=== PATIENT | male | born 1995 | race Caucasian/White ===

== ENCOUNTER 2017-07-04 18:26 | Emergency (ER) | payer SELFPAY ==
--- NOTE | 2017-07-04 19:45 | ER Document Report ---
HPI - HPI Patient complains to provider of: Rash Onset: This afternoon - 3:45 PM Onset/Duration: Sudden Pain Level: 2 Context: 22-year-old male had a plant touch the back of his left leg and he developed urticaria with facial swelling. He also said he was wheezing and used his inhaler twice. The rashe flattened and subsided quite a bit spontaneously without Benadryl. No chest pain or shortness of breath. Associated Symptoms: None Exacerbated by: Denies Relieved by: Denies Similar symptoms previously: No Recently seen / treated by doctor: No - ROS ROS below otherwise negative: Yes Systems Reviewed and Negative: Yes All other systems reviewed and negative - DERM Skin Color: Normal Past Medical History - General Information source: Patient - Social History Smoking Status: Current Every Day Smoker - vapor Frequency of alcohol use: None Drug Abuse: None Lives with: Family Family History: Reviewed & Not Pertinent Patient has suicidal ideation: No Patient has homicidal ideation: No Pulmonary Medical History: Reports: Hx Asthma Renal/ Medical History: Denies: Hx Peritoneal Dialysis Surgical Hx: Negative Vertical Provider Document - CONSTITUTIONAL Agree With Documented VS: Yes Exam Limitations: No Limitations - INFECTION CONTROL TRAVEL OUTSIDE OF THE [place] IN LAST 30 DAYS: No - HEENT HEENT: Normocephalic. negative: Conjuctival Injection, Pharyngeal Erythema - NECK Neck: Supple. negative: Lymphadenopathy-Left, Lymphadenopathy-Right - RESPIRATORY Respiratory: No Respiratory Distress, Wheezing - insp bilateral O2 Sat by Pulse Oximetry: 95 - CARDIOVASCULAR Cardiovascular: Regular Rate, Regular Rhythm - GI/ABDOMEN Gastrointestinal: Abdomen Soft, Abdomen Non-Tender - MUSCULOSKELETAL/EXTREMETIES Musculoskeletal/Extremeties: MAEW, FROM - NEURO Level of Consciousness: Awake, Alert, Appropriate - DERM Integumentary: Warm, Dry, Rash - few wheals, 1 elevated right antecubital space , flat behind both knees Course - Re-evaluation Re-evalutation: 07/04/17 20:44 Lungs clear after the nebulizer - Vital Signs Vital signs: Temp Pulse Resp BP Pulse Ox 98.4 F 78 20 161/93 H 95 07/04/17 19:01 07/04/17 19:01 07/04/17 19:01 07/04/17 19:01 07/04/17 19:01 Discharge - Discharge Clinical Impression: Elevated blood pressure reading, Urticaria, Wheezing Condition: Good Disposition: HOME, SELF-CARE Instructions: Use of Diphenhydramine, Steroid Medication, Bronchitis With Bronchospasm (Wheezing) ([facility]), Acute Urticaria ([facility]), Inhaled Bronchodilators ( [facility]), Family Physicians / Practices Additional Instructions: to er if worse see family practice doctor for blood pressure recheck use the inhaler 2 puffs every 3 hours for wheeze take over the coninue benadryl 25-50mr every 4-6 hours for the raswh steroids Please complete the patient satisfaction survey if you get one, and return it.. If you do not receive a survey, then you can go to the [facility] website, [email or web address] and place your comments about your very good care. Thank you very much. It was a pleasure being your medical provider today. Prescriptions: Prednisone [Deltasone 20 mg Tablet] 40 mg PO DAILY #8 tablet Forms: Return to Work
[2017-07-04] MEDS ORDERED: DIPHENHYDRAMINE HCL 50 MG CAPSULE PO ONE (19:56)
[2017-07-04] MEDS ORDERED: IPRATROPIUM/ALBUTEROL 0.5-2.5 MG/3 ML AMPUL NEB ONE (19:56)
[2017-07-04] MEDS ORDERED: PREDNISONE 20 MG TABLET PO ONE (19:56)
[2017-07-04] MEDS ORDERED: ALBUTEROL SULFATE HFA (90 MCG/PUFF) 200 PUFF/8.5 GM MDI IH ONE (20:44)
[2017-07-04 21:14] VITALS: BP 134/70
== END 2017-07-04 21:46 | disposition home or self-care (01) ==
LOC: ER 18:26
DX: L50.9 Urticaria, unspecified (principal); R03.0 Elevated blood-pressure reading, without diagnosis of hypertension; R22.0 Localized swelling, mass and lump, head; J45.909 Unspecified asthma, uncomplicated; F17.290 Nicotine dependence, other tobacco product, uncomplicated
CPT/HCPCS: 94640; 99282; J7512; J3490; J7620

== ENCOUNTER 2017-07-17 11:57 | Emergency (ER) | payer OTHER ==
[2017-07-17 12:05] VITALS: BP 146/78
[2017-07-17] MEDS ORDERED: ACYCLOVIR 200 MG CAPSULE PO ONE (13:43)
[2017-07-17] MEDS ORDERED: HYDROCODONE/ACETAMINOPHEN 5-325 MG 6 TAB/DSPK PO PRN (13:43)
--- NOTE | 2017-07-17 13:50 | ER Document Report ---
ED Skin Rash/Insect Bite/Abscs - General Chief Complaint: Skin Problem Stated Complaint: SKIN PROBLEM Time Seen by Provider: 07/17/17 13:11 Mode of Arrival: Ambulatory Information source: Patient Notes: 22-year-old male presents to ED for a rash from the left mid back around to the the left flank around to the left chest. It is in approximately 2 dermatomes. It does not cross the midline. He states he had pain in the area for several days before the rash broke out and the rash broke out yesterday. He denies any fevers or chills. Patient states he did have chickenpox as a child TRAVEL OUTSIDE OF THE [place] IN LAST 30 DAYS: No - HPI Patient complains to provider of: Skin rash/lesion Onset: Other - Rash started yesterday pain started about a week ago Onset/Duration: Gradual Severity: Moderate Pain Level: 4 Skin Character: Erythema, Vesicular - Herpetic pattern Quality of rash: Painful Identify cause: No - Rashes and a hepatic pattern in 2 dermatomes around the left back chest and Exacerbated by: Denies Relieved by: Denies Similar symptoms previously: No Recently seen / treated by doctor: Yes - Related Data Allergies/Adverse Reactions: Sulfa (Sulfonamide Antibiotics) Allergy (Verified 07/17/17 12:05) Home Medications: Current Home Medications Albuterol Sulfate [Proair HFA] 1 - 2 puff IH Q4 PRN 07/17/17 [History] Past Medical History - General Information source: Patient - Social History Smoking Status: Current Every Day Smoker - Vapor cigarette Cigarette use (# per day): Yes - Vapor cigarettes Chew tobacco use (# tins/day): No Frequency of alcohol use: None Drug Abuse: None Lives with: Alone Family History: Arthritis, DM, Hyperlipidemia, Hypertension, Thyroid Disfunction Patient has suicidal ideation: No Patient has homicidal ideation: No - Past Medical History Cardiac Medical History: Reports: None Pulmonary Medical History: Reports: Hx Asthma EENT Medical History: Reports: None Neurological Medical History: Reports: None Endocrine Medical History: Reports: None Renal/ Medical History: Reports: None Malignancy Medical History: Reports None GI Medical History: Reports: None Musculoskeltal Medical History: Reports None Skin Medical History: Reports None Psychiatric Medical History: Reports: None Traumatic Medical History: Reports: None Infectious Medical History: Reports: None Surgical Hx: Negative - Immunizations Immunizations up to date: Yes Review of Systems - Review of Systems Constitutional: No symptoms reported EENT: No symptoms reported Cardiovascular: No symptoms reported Respiratory: No symptoms reported Gastrointestinal: No symptoms reported Genitourinary: No symptoms reported Male Genitourinary: No symptoms reported Musculoskeletal: No symptoms reported Skin: Rash - Vesicular rash to the left back flank and abdomen and a herpetic pattern in 2 adjacent dermatome. They do not cross the midline Hematologic/Lymphatic: No symptoms reported Neurological/Psychological: No symptoms reported -: Yes All other systems reviewed and negative Physical Exam - Vital signs Vitals: Temp Pulse Resp BP Pulse Ox 98.6 F 72 16 146/78 H 99 07/17/17 12:03 07/17/17 12:03 07/17/17 12:03 07/17/17 12:03 07/17/17 12:03 Interpretation: Normal - General General appearance: Appears well, Alert - HEENT Head: Normocephalic, Atraumatic Eyes: Normal Pupils: PERRL - Respiratory Respiratory status: No respiratory distress Chest status: Nontender Breath sounds: Normal Chest palpation: Normal - Cardiovascular Rhythm: Regular Heart sounds: Normal auscultation Murmur: No - Abdominal Inspection: Normal Distension: No distension Bowel sounds: Normal Tenderness: Nontender Organomegaly: No organomegaly - Back Back: Normal, Nontender - Extremities General upper extremity: Normal inspection, Nontender, Normal color, Normal ROM , Normal temperature General lower extremity: Normal inspection, Nontender, Normal color, Normal ROM , Normal temperature, Normal weight bearing. No: Vinicio's sign - Neurological Neuro grossly intact: Yes Cognition: Normal Orientation: AAOx4 [place] Coma Scale Eye Opening: Spontaneous [place] Coma Scale Verbal: Oriented Mary Coma Scale Motor: Obeys Commands Mary Coma Scale Total: 15 Speech: Normal Motor strength normal: LUE, RUE, LLE, RLE Sensory: Normal - Psychological Associated symptoms: Normal affect, Normal mood - Skin Skin Temperature: Warm Skin Moisture: Dry Skin Color: Normal Character of irregularity: Vesicular - Panic type rash. Inflamed in 2 adjacent dermatomes around the left chest back Irregularity with: Tenderness Course - Re-evaluation Re-evalutation: 07/17/17 14:05 Patient given a [place] dispense pack for the pain and acyclovir. He was also given a prescription for acyclovir and acyclovir cream and ibuprofen for his shingles to the left. - Vital Signs Vital signs: Temp Pulse Resp BP Pulse Ox 98.6 F 72 16 146/78 H 99 07/17/17 12:03 07/17/17 12:03 07/17/17 12:03 07/17/17 12:03 07/17/17 12:03 Discharge - Discharge Clinical Impression: Shingles Qualifiers: Herpes zoster complications: without complications Qualified Code(s): B02.9 - Zoster without complications Condition: Stable Disposition: HOME, SELF-CARE Instructions: Family Physicians / Practices Additional Instructions: Shingles You have shingles. Shingles is caused by the chicken pox virus, The virus has been surviving dormant in a nerve cell since you had chicken pox years ago. The virus has spread down a nerve root to reach the skin. Typically, an band-like area of pain and skin sensitivity develops, then small blisters erupt in the area. Shingles lasts two or three weeks, but sometimes leaves persistent pain. You are contagious -- you can give children chicken pox. But you can't give anyone shingles. Antiviral medicines (such as acyclovir or famciclovir) can help, but the rash usually worsens for about a week. Pain medication is often given if the area hurts. Antihistamines such as Benadryl may be necessary for itching if it does not respond to soda baths and calamine lotion. Sometimes cortisone medicine or nerve-block shots are necessary if pain is severe. If the area remains severely painful as the sores heal, or if you suspect an infection developing in the sores, see your doctor. You can work his leg long as you keep the area covered and do not scratch or touch the area affected while you are at work you need good handwashing multiple times a day. If you cannot do this then you will need to take off while you are have open blisters Oral Narcotic Medication You have been given a [place] disp pack for pain control. This medication is a narcotic. It's best taken with food, as nausea can result if taken on an empty stomach. Don't operate machinery or drive within six hours of taking this medication. Do not combine this medicine with alcohol, or with any medication which can cause sedation (such as cold tablets or sleeping pills) unless you get permission from the physician. Narcotics tend to cause constipation. If possible, drink plenty of fluids and eat a diet high in fiber and fruits. FOLLOW-UP CARE: If you have been referred to a physician for follow-up care, call the physician s office for an appointment as you were instructed or within the next two days. If you experience worsening or a significant change in your symptoms, notify the physician immediately or return to the Emergency Department at any time for re-evaluation. Prescriptions: Ibuprofen 800 mg PO Q8HP PRN #20 tablet PRN Reason: Acyclovir 800 mg PO 5XD #35 tablet Acyclovir/Hydrocortisone [Xerese 5%-1% Cream] 1 applic TP 5XD #1 pkg Forms: Elevated Blood Pressure, Smoking Cessation Education, Return to Work
== END 2017-07-17 14:05 | disposition home or self-care (01) ==
LOC: ER 11:57
DX: B02.9 Zoster without complications (principal); L98.9 Disorder of the skin and subcutaneous tissue, unspecified; R21 Rash and other nonspecific skin eruption; F17.210 Nicotine dependence, cigarettes, uncomplicated
CPT/HCPCS: 99283